=== PATIENT | female | born 1975 | race Two or more races ===

== ENCOUNTER 2020-12-10 13:20 | Outpatient (CLI) | payer OTHER | END 2020-12-10 16:00 | disposition home or self-care (01) | LOC: OFIC 805 13:20 | PROVIDERS: ATTEND Otolaryngology | DX: R42 Dizziness and giddiness (principal); J31.0 Chronic rhinitis; R09.81 Nasal congestion ==

== ENCOUNTER 2020-12-17 09:52 | Outpatient (CLI) | payer OTHER | END 2020-12-17 11:12 | disposition home or self-care (01) | LOC: OFIC 805 09:52 | PROVIDERS: ATTEND Otolaryngology | DX: R42 Dizziness and giddiness (principal); J31.0 Chronic rhinitis; R09.81 Nasal congestion ==